=== PATIENT | male | born 1945 | race Caucasian/White ===

== ENCOUNTER 2017-04-25 18:01 | Inpatient (IN) ==
[2017-04-25] MEDS ORDERED: NS 500 ML IV ONE (19:14)
[2017-04-25] MEDS ORDERED: MORPHINE IV ONE (19:15)
[2017-04-25 19:19] LABS: BASO% 0.6 % (0.0-0.8); EOS# 0.42 X1000 (0.0-0.7); HEMATOCRIT 32.9 % (42.0-52.0); HEMOGLOBIN 9.8 g/dL (14.0-18.0); IMM GRAN# 0.02 X1000 (0.0-0.04); IMM GRAN% 0.2 % (0.0-0.5); LYMPH# 2.24 X1000 (1.2-3.4); LYMPH% 21.2 % (20.5-51.1); MANUAL DIFF NEEDED? NO; MCH 22.3 PG (27-31); MCHC 29.8 g/dL (33-37); MCV 74.8 FL (81-99); MONO# 0.95 X1000 (0.11-0.59); PLT 220 X1000 (130-400)
--- NOTE | 2017-04-25 19:24 | PROVIDER DOCUMENTATION ---
HPI-Chest Pain - General Chief Complaint: Chest Pain Stated Complaint: cp Time Seen by Provider: 04/25/17 19:03 Source: patient Allergies/Adverse Reactions: Patient Allergies Allergy/AdvReac Type Severity Reaction Status Date / Time No Known Allergies Allergy Verified 04/25/17 19:35 Home Medications: Home Medication List Medication Instructions Recorded Confirmed Last Taken Type Aspirin [Aspir-Low] 81 mg PO DAILY 04/25/17 04/25/17 Unknown History Bupropion HCl [Bupropion Xl] 150 mg PO DAILY 04/25/17 04/25/17 Unknown History Diclofenac Na D.r. [Voltaren] 75 mg PO BID 04/25/17 04/25/17 Unknown History Duloxetine [Cymbalta] 30 mg PO DAILY 04/25/17 04/25/17 Unknown History Gabapentin 300 mg PO TID 04/25/17 04/25/17 Unknown History Magnesium Oxide [Magnesium] 400 mg PO DAILY 04/25/17 04/25/17 Unknown History Metformin [Glucophage] 850 mg PO BID CC 04/25/17 04/25/17 Unknown History Metoprolol Tartrate 50 mg PO BID 04/25/17 04/25/17 Unknown History Pantoprazole [Protonix] 40 mg PO DAILY@0700 04/25/17 04/25/17 Unknown History Pravastatin Sodium 80 mg PO DAILY 04/25/17 04/25/17 Unknown History Ranitidine [Zantac] 150 mg PO BID 04/25/17 04/25/17 Unknown History Topiramate 0.5 tab PO BID 04/25/17 04/25/17 Unknown History - History of Present Illness-CP Nature of Presenting Problem: Pt comes in with complaint of CP since around 1pm today. He has a history of NC with PCI. He states he has SVT and has pain with it that usually subsides. He states that the pain usually resolves but didn't this time. He states the pain was 7/10 and then he took 4 baby aspirin before calling EMS. He refuses to take nitro because it causes a headache. He got 2 mg of morphine in route and his CP is now 4/10. It does not radiate, He does have mild SOB no N/V Review of Systems - Adult - REVIEW OF SYSTEMS - ADULT Constitutional: reports: no symptoms reported. denies: chills, fever, fatique, night sweats, weight gain, weight loss, other Eyes: reports: no symptoms reported. denies: discharge, dry eyes, double vision , eye pain, redness Ears, Nose, Mouth & Throat: reports: no symptoms reported. denies: ear discharge, ear pain, tinnitus, loose teeth, mouth swelling, hoarseness, throat pain, throat swelling Cardiovascular: reports: see HPI, chest pain, irregular heart rate. denies: edema, orthopnea, palpitations, poor circulation, PND, syncope, other Respiratory: reports: see HPI, shortness of breath. denies: chronic cough, cough, dyspnea on exertion, excessive sputum production, hemoptysis, pleurisy, wheezing Gastrointestinal: reports: no symptoms reported. denies: abdominal pain, hematemesis, constipation, diarrhea, difficulty swallowing, nausea, poor appetite, rectal bleeding Genitourinary: reports: no symptoms reported. denies: dysuria, discharge, frequency, flank pain, frequent UTI's, hesitency, incontinence, urinary retention, urgency Musculoskeletal: reports: no symptoms reported. denies: bone pain, back pain, frequent leg cramps, joint pain, joint swelling, muscle aches, muscle weakness, neck pain Integumentary: reports: no symptoms reported. denies: hives, hair loss, itching , mole changes, rash, skin sores/ulcer, skin thickening Neurological: reports: no symptoms reported. denies: ataxia, dizziness/vertigo , headache/migraines, loss of balance, paresthesia, slurred speech, syncope, tremors Psychiatric: reports: no symptoms reported. denies: anxiety, anti-depressant use, alcohol/drug dependence, emotional problems, insomnia, panic attacks, suicidal thoughts Endocrine: reports: no symptoms reported. denies: change in skin pigment, excessive sweating, goiter, heat intolerance, increased hunger, increased thirst , polyuria Hematologic/Lymphatic: reports: no symptoms reported. denies: blood clots, easy bruising, low blood count, lymphedema, prolonged bleeding, swollen lymph nodes, transfusions Allergic/Immunologic: reports: no symptoms reported. denies: allergic reactions , allergic rhinitis, asthma, eczema, hay fever, hives, positive PPD All Other Systems: Reviewed and Negative Past History - Adult - PAST MEDICAL HISTORY-ADULT Review of Records: reports: Old Records Reviewed, Nursing Assessment Review, Medications Reviewed, Social history reviewed & non-contributory. Major Childhood Illnesses: reports: denies history Cardiovascular: reports: HTN, hyperlipidemia, NC Respiratory: reports: denies history Gastrointestinal: reports: denies history Obstetrical/Gynecological: reports: denies history Genitourinary: reports: denies history Musculoskeletal: reports: denies history Neurological: reports: denies history Psychiatric: reports: denies history Endocrine/Immune: reports: Diabetes Other Conditions: reports: denies history - PRIOR SURGERIES/PROCEDURES Surgical/Procedure History: reports: reviewed, not pertinent - IMMUNIZATION STATUS Childhood Immunizations: See Nurse Assessment Flu Vaccine: See Nurse Assessment - FAMILY HISTORY Family History: reviewed, not pertinent - SOCIAL HISTORY Smoking: cigarettes, greater than 1 pack/day Substance Use: none/never Alcohol Use Frequency: never Living Situation: family Physical Exam-General - PHYSICAL EXAM-ADULT Initial Vital Signs Reviewed: Yes - CONSTITUTIONAL General Appearance: alert, mild distress - EYES Eyes: PERRL/EOMI, pink conjunctivae - HEAD, EARS, NOSE, MOUTH & THROAT HENMT: normocephalic/atraumatic, moist mucous membranes, normal ENT inspection - NECK Neck: non-tender, full range of motion, supple - RESPIRATORY Respiratory: chest non-tender, lungs clear, normal breath sounds, no pleuratic chest pain, no respiratory distress - CARDIOVASCULAR Cardiovascular: normal peripheral pulses, regular rate, rhythm, no edema - GASTROINTESTINAL (ABDOMEN) Abdominal Exam: normal bowel sounds, non tender, soft, no organomegaly - MUSCULOSKELETAL Back Exam: normal inspection, no CVA tenderness, no vertebral tenderness Extremity: normal range of motion, non-tender, normal gait, normal inspection - SKIN Integumentary: normal color, normal turgor, warm/dry - 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 nml as tested, grossly normal, no motor/sensory deficits - PSYCHIATRIC Psych/Mental Status: normal mood/affect, normal thought content, normal thought process, oriented x 3 Progress - PLAN OF CARE/RESULTS Progress/Plan/Lab Results: Vital Signs - 8 hr 04/25/17 18:32 04/25/17 19:52 Temperature 97.8 F Pulse Rate 54 L 54 L Respiratory Rate 18 18 Blood Pressure 115/80 119/77 O2 Sat by Pulse Oximetry 97 100 Laboratory Results - last 24 hr 04/25/17 04/25/17 04/25/17 18:49 18:49 18:49 WBC 10.56 RBC 4.40 L Hgb 9.8 L Hct 32.9 L MCV 74.8 L MCH 22.3 L MCHC 29.8 L RDW Std Deviation 17.3 H Plt Count 220 MPV 12.0 H Immature Gran % (Auto) 0.2 Neut % (Auto) 65.0 Lymph % (Auto) 21.2 Perry % (Auto) 9.0 Eos % (Auto) 4.0 Baso % (Auto) 0.6 Immature Gran # (Auto) 0.02 Neut # (Auto) 6.87 H Lymph # (Auto) 2.24 Perry # (Auto) 0.95 H Eos # (Auto) 0.42 Baso # (Auto) 0.06 PT INR PTT (Actin FS) D-Dimer 0.50 Sodium 141 Potassium 4.8 Chloride 109 H Carbon Dioxide 18 L Anion Gap 14 BUN 28 H Creatinine 1.3 H Estimated GFR/1.73 m2 55 BUN/Creatinine Ratio 22 Glucose 157 H Calculated Osmolality 290 Calcium 8.3 L Magnesium 1.9 Total Bilirubin 0.18 L AST 27 ALT 23 Alkaline Phosphatase 64 Creatine Kinase 176 Troponin T [id number] Pept Total Protein 6.6 Albumin 3.8 Globulin 2.8 Albumin/Globulin Ratio 1.4 04/25/17 04/25/17 04/25/17 18:49 18:49 18:49 WBC RBC Hgb Hct MCV MCH MCHC RDW Std Deviation Plt Count MPV Immature Gran % (Auto) Neut % (Auto) Lymph % (Auto) Perry % (Auto) Eos % (Auto) Baso % (Auto) Immature Gran # (Auto) Neut # (Auto) Lymph # (Auto) Perry # (Auto) Eos # (Auto) Baso # (Auto) PT 11.1 INR 1.05 PTT (Actin FS) 25.8 D-Dimer Sodium Potassium Chloride Carbon Dioxide Anion Gap BUN Creatinine Estimated GFR/1.73 m2 BUN/Creatinine Ratio Glucose Calculated Osmolality Calcium Magnesium Total Bilirubin AST ALT Alkaline Phosphatase Creatine Kinase Troponin T 0.016 [id number] Pept 423 H Total Protein Albumin Globulin Albumin/Globulin Ratio Orders Category Date Time Status Cardiac Monitoring DIRECTED Care 04/25/17 19:03 Active Saline Loc NOW Care 04/25/17 19:03 Active CHEST-2 VIEWS [RAD] Stat Exams 04/25/17 19:03 Completed CBC WITH ELECTRONIC DIFF [HEME] Stat Lab 04/25/17 18:49 Completed CK PROFILE [SP CHEM] Stat Lab 04/25/17 18:49 Completed CK PROFILE [SP CHEM] Timed Lab 04/25/17 20:49 Uncollected COMPREHENSIVE METABOLIC PANEL [CHEM] Stat Lab 04/25/17 18:49 Completed D-DIMER [CHEM] Stat Lab 04/25/17 18:49 Completed FERRITIN Routine Lab 04/26/17 06:00 Ordered FOLATE Routine Lab 04/26/17 06:00 Ordered MAGNESIUM [CHEM] Stat Lab 04/25/17 18:49 Completed PRO B-NATRIURETIC PEPTIDE Stat Lab 04/25/17 18:49 Completed PROTIME WITH INR [COAG] Stat Lab 04/25/17 18:49 Completed PTT [COAG] Stat Lab 04/25/17 18:49 Completed TOTAL IRON [CHEM] Routine Lab 04/26/17 06:00 Ordered TROPONIN T Stat Lab 04/25/17 18:49 Completed TROPONIN T Timed Lab 04/25/17 20:49 Uncollected UIBC W TOTAL IRON [CHEM] Routine Lab 04/26/17 06:00 Ordered VITAMIN B12 Routine Lab 04/26/17 06:00 Ordered 0.9% Sodium Chloride Inj [Ns] 500 ml Med 04/25/17 19:14 Discontinued IV 999 mls/hr Morphine Med 04/25/17 19:15 Discontinued 2 mg IV NOW ONE EKG [EKG] Stat Ther 04/25/17 18:05 Ordered Result Diagrams: 04/25/17 18:49 04/25/17 18:49 - XRAY 1 XRAY Study: Chest Impression: Normal XRAY Interpretation: NAD(HCB) - CONSULTS/PCP/HOSPITALIST Notification #1 *Consult/PCP/Hospitalist*: akinsoto Time Discussed: 21:27 Reason/Comments: CP Consult Disposition: Will see in ED, Admit Departure - Departure Date of Disposition Decision: 04/25/17 Time of Disposition Decision: 21:05 DIAGNOSIS: PADMINI (acute kidney injury), Chest pain at rest, Angina pectoris associated with type 2 diabetes mellitus Disposition: ADMITTED INPATIENT 09 Certified Medical Emergency: Emergent Condition: Good Additional Freetext Instructions: ED Follow Up Instructions: You have been treated by a care provider in the Emergency Department. These instructions are being provided to you so you can have an understanding of how to care for yourself upon discharge. Upon discharge from the Emergency Department, you are responsible for making arrangements for follow-up care by a physician of your choice. Take all prescribed medications as directed. Return to the Emergency Department immediately for any new or worsening symptoms. You may call the Physician Referral phone number at [phone] to obtain a list of Physicians who are taking new patients. Referrals and Follow-Ups: None,PCP [Primary Care Provider] - - Critical Care Note This patient required my direct & personal management of CC.: No Attestation - Physician/ AUDREY Attestation Patient care was provided by Advanced Practice Provider:: Yes Advanced Practice Provider:: Miya Flowers Advanced Practice Provider documentation review:: The Mid-level provider documentation, treatment plan and medical decision making was reviewed by the physician who agrees with all treatment and medical decision making by the MLP.
[2017-04-25 19:26] LABS: INR 1.05; PROTIME 11.1 Seconds (9.2-11.7); PTT 25.8 Seconds (22.0-36.0)
[2017-04-25 19:34] LABS: ALBUMIN 3.8 g/dL (3.5-5.0); CALCIUM 8.3 mg/dL (8.8-10.2); MAGNESIUM 1.9 mg/dL (1.5-2.7); POTASSIUM 4.8 mmol/L (3.5-5.1); TOTAL BILIRUBIN 0.18 mg/dL (0.20-1.00); TOTAL PROTEIN 6.6 g/dL (6.3-8.3)
--- NOTE | 2017-04-25 19:48 | Diag Imaging Result Doc PS360 ---
EXAM: CHEST-2 VIEWS HISTORY: CP TECHNIQUE: COMPARISON: None. FINDINGS: Poor inspiratory effort. The heart is not enlarged. The vessels are not distended. There are no infiltrates. No pleural effusions. IMPRESSION: No definite abnormality. Electronically signed by Farooq Valentine 04/25/2017 7:46 PM
[2017-04-25 22:22] LABS: CK INDEX 3.1 (0.0-2.5); CK-MB 12.27 ng/mL (0.0-5.0)
--- NOTE | 2017-04-25 22:51 | HISTORY AND PHYSICAL ---
PRIMARY CARE PROVIDER: [facility]. PRIMARY BOX ANNEALER: Through the [facility], Dr. Vizcaino and also Dr. Frances. CHIEF COMPLAINT: Chest pain. HISTORY OF PRESENT ILLNESS: Mr. Robert Marcial is a 71-year-old male. He is in no acute distress. He has a medical history of hypertension, diabetes mellitus type 2, ventricular tachycardia, coronary artery disease, chronic angina and peptic ulcer disease who states that he was awoken at 4 p.m. today from a nap with chest pain mid sternum that radiated to bilateral arms and his back. He also had associated sweating and lightheadedness. He states that this pain has been continuous. He took 4 baby aspirin prior to arrival and his pain level is down to a 2/10 after receiving morphine. He also states that he has had some diarrhea over the last month, but will be having a GI work up soon as outpatient. In detail about his chronic chest pains, he states that they usually last about 10-20 minutes. They can happen 2-3 times in 1 day. Sometimes he can skip a whole month without chest pains, and he normally takes 4 baby aspirin which alleviates this pain. He states that nitroglycerin gives him migraines and he does not take nitroglycerin. His last bout of chest pain was about 3 days ago and prior to that had been over a month. Last heart catheterization apparently was in 2000 after he had an acute TN and received a cardiac stent. He has had some recent echocardiograms through the [facility] and apparently was on a 30- day continuous monitor tech, but was only 15 days into it. We will admit to the [facility]. The 1st set of cardiac enzymes are negative. EKG is sinus bradycardia. No obvious ST elevations. We will admit to [facility] and consult Dr. Reyez with Cardiology. PAST MEDICAL HISTORY: Hypertension, diabetes mellitus type 2, ventricular tachycardia, coronary artery disease with a myocardial infarction in 2000, chronic angina, migraines, but those quit at the age of 51, peptic ulcer disease with a history of duodenal ulcer. SURGICAL HISTORY: Cardiac stent in 2000, cholecystectomy and vasectomy. SOCIAL HISTORY: Quit smoking in 1989, but prior to that was 2 pack per day smoker for 20 years. Quit drinking alcohol in 1989. is at the bedside with him and he is a . FAMILY HISTORY: Father is from cirrhosis of the liver. Mother is also of unknown cancer. REVIEW OF SYSTEMS: Fourteen point review of systems were complete and all were negative except for those mentioned in above HPI. ALLERGIES: No known drug allergies. HOME MEDICATIONS: 1. Aspirin 81 mg p.o. daily. 2. Wellbutrin 150 mg p.o. daily. 3. Voltaren 75 mg p.o. twice daily. 4. Cymbalta 30 mg p.o. daily. 5. Neurontin 300 mg p.o. t.i.d. 6. Magnesium oxide 400 mg p.o. daily. 7. Metformin 850 mg p.o. b.i.d. 8. Metoprolol tartrate 50 mg p.o. twice daily. 9. Protonix 40 mg p.o. daily. 10. Pravastatin 80 mg p.o. daily. 11. Zantac 150 mg p.o. twice daily. 12. Topiramate 100 mg p.o. twice daily. PHYSICAL EXAMINATION: VITAL SIGNS: Temperature is 97.8 degrees, heart rate 54, respiratory rate 18, blood pressure 119/77, 100% on room air saturation. 5 foot 9, 204 pounds. BMI 30.1. GENERAL: Mr. Marcial is a 71-year-old male. He is in no acute distress. He is able answer all questions appropriately. HEENT: Atraumatic, normocephalic. Pupils equal, round, reactive to light. Extraocular movements intact. Mucous membranes are moist. NECK: No JVD or carotid bruits noted. CARDIOVASCULAR: S1, S2. Bradycardic rate and rhythm. No rubs, gallops, murmurs. PULMONARY: Clear to auscultation bilateral breath sounds posteriorly. Some mild crepitations in the left base. Currently on room air. No accessory muscle use or work of breathing noted. GI: Soft, nontender, nondistended. Positive bowel sounds x4. Small periumbilical hernia noted. EXTREMITIES: No edema noted. +2 dorsalis and radial pulses. SKIN: Warm, dry, intact. NEUROLOGIC: Alert and oriented x4. Moves all extremities equally. LABORATORY DATA: White blood cells 10,000, hemoglobin 9.8, hematocrit 32.9, platelet count 220,000. INR 1.05. PTT 25.8. D-dimer 0.5. Sodium 141, potassium 4.8, BUN 28 , creatinine is 1.3. Glucose 157, calcium 8.3, magnesium 1.9. Bilirubin 0.18, AST 27, ALT 23, CK 176, troponin 0.016, proBNP 423. Urinalysis pending. IMAGING: Chest x-ray: No acute findings. ASSESSMENT AND PLAN: 1. Unstable angina rule out Acute Coronary Syndrome with coronary arterial disease history. Chest pain has been continuous with associated diaphoresis and bilateral arms and back radiation, improved mildly with morphine. Apparently, his last heart cath was in 2000. He has a history of coronary artery disease. We will consult Cardiology. Do serial cardiac enzymes. First set is negative. 2. Diabetes mellitus type 2 with sliding scale insulin, pattern blood glucoses. 3. Hypertension. Continue home medications. 4. History of ventricular tachycardia. Continue beta racquel, but monitor heart rate as it was in the upper 50s. 5. Peptic ulcer disease. Apparently with duodenal. We will do IV Pepcid and p.o. Protonix. 6. Anemia. labs ordered. 7. Acute kidney insufficiency likely secondary to dehydration. We will give IV fluids x 1 L and perform urine studies. 8. Deep venous thrombosis prophylaxis. Lovenox. Dictated by AMANDA Verdugo for Karlo Bates MD Seen and examined pt ; discussed case with Coin Purse Framer cc: AMANDA Verdugo MD [facility]
[2017-04-25 23:13] LABS: URINE MICRO REVIEW NEEDED? NO; URINE SOURCE VOIDED
[2017-04-25 23:17] LABS: BILIRUBIN URINE NEGATIVE (NEGATIVE); BLOOD URINE NEGATIVE (NEGATIVE); COLOR YELLOW; GLUCOSE URINE TRACE mg/dL (NEGATIVE); LEUKOCYTES URINE NEGATIVE (NEGATIVE); NITRITE URINE NEGATIVE (NEGATIVE); PROTEIN URINE TRACE mg/dL (NEGATIVE); TURBIDITY URINE CLEAR (CLEAR); UR EPITHELIAL CELLS <10 /HPF (<10); URINE BACTERIA NEGATIVE /HPF; URINE RBC <10 /HPF (<10); URINE WBC <10 /HPF (<10); UROBILINOGEN URINE NORMAL (NORMAL)
[2017-04-25 23:28] LABS: UR CREAT RANDOM 110.4 mg/dL (14-26)
[2017-04-26] MEDS ORDERED: SODIUM CHLORIDE 0.9% INJ SCH (00:08)
[2017-04-26] MEDS ORDERED: ZOFRAN IV PRN (00:08)
[2017-04-26] MEDS ORDERED: PEPCID IV SCH (00:08)
[2017-04-26] MEDS ORDERED: TYLENOL PO PRN (00:08)
[2017-04-26] MEDS ORDERED: NS 1,000 ML IV ONE (00:08)
[2017-04-26] MEDS ORDERED: LOPRESSOR PO SCH (00:56)
[2017-04-26] MEDS ORDERED: NEURONTIN PO SCH (00:58)
[2017-04-26] MEDS: MORPHINE IV PRN ×2 (01:03→07:08)
[2017-04-26] MEDS: MAG-OX PO SCH ×2 (01:12→20:26)
[2017-04-26] MEDS: PRAVACHOL PO SCH ×2 (01:12→20:26)
[2017-04-26] MEDS: PROTONIX PO SCH ×3 (01:13→20:26)
[2017-04-26] MEDS: TOPAMAX PO SCH ×3 (01:13→20:25)
[2017-04-26] MEDS ORDERED: NEURONTIN PO ONE (01:19)
[2017-04-26 05:21] LABS: MANUAL DIFF NEEDED? NO
[2017-04-26 05:28] LABS: BASO% 0.3 % (0.0-0.8); EOS# 0.29 X1000 (0.0-0.7); HEMATOCRIT 31.3 % (42.0-52.0); HEMOGLOBIN 9.1 g/dL (14.0-18.0); IMM GRAN# 0.02 X1000 (0.0-0.04); IMM GRAN% 0.2 % (0.0-0.5); LYMPH# 2.59 X1000 (1.2-3.4); LYMPH% 26.7 % (20.5-51.1); MCH 21.8 PG (27-31); MCHC 29.1 g/dL (33-37); MCV 75.1 FL (81-99); MONO% 10.3 % (1.7-9.3); NEUT% 59.5 % (42.2-75.2); PLT 212 X1000 (130-400); RBC 4.17 XMIL (4.7-6.1)
[2017-04-26 05:57] LABS: MAGNESIUM 1.9 mg/dL (1.5-2.7)
[2017-04-26 05:59] LABS: HEMOGLOBIN A1C 6.4 % (4.8-6.0)
[2017-04-26 06:02] LABS: AGAP 10; ALBUMIN 3.7 g/dL (3.5-5.0); ALKALINE PHOSPHATASE 60 U/L (32-122); BUN 23 mg/dL (8-22); CALCIUM 8.4 mg/dL (8.8-10.2); CHLORIDE 108 mmol/L (98-107); COSMO 284; GOT 120 U/L (10-34); GPT 32 U/L (10-44); HDL 31 mg/dL (35-55); LDL 78 mg/dL; POTASSIUM 4.9 mmol/L (3.5-5.1); SODIUM 139 mmol/L (136-145); TCO2 21 mmol/L (25-35); TOTAL BILIRUBIN 0.23 mg/dL (0.20-1.00); TOTAL PROTEIN 6.3 g/dL (6.3-8.3); TRIGLYCERIDES 176 mg/dL (39-160); VLDL 35 mg/dL
[2017-04-26 06:18] LABS: CK PROFILE 1818 U/L (24-204)
[2017-04-26 06:35] LABS: CK INDEX 7.3 (0.0-2.5)
[2017-04-26] MEDS: HUMULIN R SUBQ SCH ×4 (06:43→20:27)
[2017-04-26 07:02] LABS: FERRITIN 9 ng/mL (30-400)
[2017-04-26] MEDS ORDERED: LOVENOX SUBQ SCH (08:00)
[2017-04-26] MEDS ORDERED: ASPIRIN PO SCH (09:00)
[2017-04-26] MEDS: LOVENOX SUBQ SCH ×2 (10:21→21:16)
[2017-04-26] MEDS: WELLBUTRIN XL PO SCH (10:21)
[2017-04-26] MEDS: CYMBALTA PO SCH (10:21)
[2017-04-26] MEDS: NEURONTIN PO SCH ×3 (10:21→20:25)
[2017-04-26 10:36] LABS: IRON SATURATION 6 %; TIBC 369 ug/dL; TOTAL IRON 22 ug/dL (53-167); UNBOUND IRON 347 ug/dL (112-346)
--- NOTE | 2017-04-26 12:32 | Diag Imaging Result Doc PS360 ---
EXAM: CT THORAX W/O CONTRAST HISTORY: COPD/former smoker/dyspnea TECHNIQUE: COMPARISON: None. FINDINGS: No pleural effusions. Heart is borderline mildly prominent. Moderate atherosclerosis. No aneurysmal dilatation to the aorta. There are mildly enlarged mediastinal lymph nodes. Mild increased interstitial markings in the upper lobes. No consolidation. No bronchiectasis. Minimal emphysematous changes. IMPRESSION: 1.Patchy upper lobe infiltrates 2.Mild emphysema 3.Mildly prominent mediastinal lymph nodes with a single enlarged aorticopulmonary window node measuring 2.2 cm. Electronically signed by Farooq Valentine 04/26/2017 12:29 PM
[2017-04-26] MEDS ORDERED: NS NEB INH SCH (12:45)
--- NOTE | 2017-04-26 13:11 | PROGRESS NOTE ---
DATE: 04/26/2017 SUBJECTIVE: The patient complains of 3/10 chest pain. His cardiac enzymes are positive. He denies having any shortness of breath or cough at this time. OBJECTIVE: Vital Signs: Temperature 98 degrees, blood pressure 111/68, heart rate 54, respirations 21, O2 saturations 100% on room air. General: This is a morbidly obese male, lying in bed, in no acute distress. Head: Normocephalic, atraumatic. Heart: S1, S2. Normal. Bradycardic. Lungs: Equal air entry bilaterally. No crackles. No rales. Abdomen: Positive bowel sounds. Soft, nontender, nondistended. Extremities: No edema. No cyanosis. No calf tenderness. Neurologic: The patient is alert oriented x3. LABS: White blood cell count 9.7, hemoglobin 9.1, hematocrit 31, platelets 212, 000. Sodium 139, potassium 4.9, chloride 108, CO2 21, BUN 23, creatinine 1.1, glucose 156. Hemoglobin A1c 6.4. CK 1818, troponin 3.6. Cholesterol 144. ASSESSMENT AND PLAN: 1.Acute myocardial infarction. The patient has been seen by the police academy instructor and has been started on full dose Lovenox as well as a beta racquel and aspirin. We will continue on statin therapy. The patient is scheduled for a resting myocardial perfusion scan tomorrow. We will continue to monitor the patient closely. 2. Upper lobe infiltrates. The CT done today shows infiltrates. We will start the patient on Merrem and on p.r.n. bronchodilator therapy. 3. Diabetes mellitus type 2. The patient's metformin is on hold. We will cover the patient with sliding scale insulin. 4. Morbid obesity. Aware. 5. Folate deficiency. The patient has been started on folic acid replacement. 6. Situational depression. Continue on Wellbutrin. 7. Iron-deficiency anemia. The patient has been started on IV iron replacement. We will monitor the patient's hemoglobin and hematocrit closely. cc: Talia Virk MD MTDD
--- NOTE | 2017-04-26 13:16 | CONSULTATION ---
DATE OF CONSULTATION: 04/26/2017 REQUESTING PHYSICIAN: Hospitalist Service REASON FOR CONSULTATION: Patient with chest pain, coronary artery disease suspected. HISTORY OF PRESENT ILLNESS: Mr. Marcial is a pleasant 71-year-old gentleman who presented to the Emergency Room yesterday afternoon at about 7:00 p.m. with complaints of a prolonged episode of chest discomfort associated with a sensation of palpitations. The patient said that the pain was stabbing-like moving from the front of the chest to the back with radiation to the arm associated with some lightheadedness. He had no nausea. He was slightly short of breath. Upon presentation they did a chest x-ray that shows no acute abnormalities. Blood work initially done showed a CPK of 176 with a troponin of 0.016. Subsequently his CPK went up to 393 with a CK index of 3.1 and a CK-MB of 12.27 with a troponin of 0.108. Thereafter, the next CK at 4:59 this morning is 1818 units with an index of 7.3 and CK-MB of 132.60. Troponin now is 3.620 done at 8:30 in the morning. The patient says that his discomfort right now is less than 1/10. His serial electrocardiograms starting with the first one at 6:11 p.m. shows sinus bradycardia with J point elevation in leads V2, V3, 4, 5, and 6 with reciprocal T wave inversion in lead 3. Then there is a second EKG at 9:[address] that shows again [address] elevation in leads V2 through C6, precordial leads , with pathological Q waves in V1, 2 and 3. The last EKG done at 6:00 a.m. shows sinus bradycardia and left axis deviation with Q waves in the precordial leads V1 through V5. The J point is not as prominent as it was on the previous EKG 6 hours earlier. He is feeling more comfortable at this time. PAST MEDICAL HISTORY: His past history is positive for pericarditis at the age of 22. Since then he remembers suffering recurrent chest pains over the course of the years. In 2000 when he was living in [place] he suffered an acute myocardial infarction which at that time he described a bear hug which basically means pain all over the chest, a very tight feeling, intense , different than the pain that brought him to the Emergency Room this time. At that time he was taken to the labeling associate and they gave him a stent. Since these he has continued to experience episodes of irregular palpitations associated with chest pains. He says that the spells happen in a very irregular manner, sometimes 3 times a day, no more than 10-20 minutes each time, and sometimes it may not happen for a whole month. The discomfort is described as "stabbing" in the center of the chest and it radiates to the back and then left arm and neck and is similar to the one that brought him today to the hospital although it was somewhat more intense this time. He is being followed by the [facility] in [place], Dr. Vizcaino and Dr. Frances. The last time he was seen was 6 weeks and they had ordered an echocardiogram and a stress test on him. The patient states that for the past few months he has been experiencing increasing dyspnea. His exercise capacity has decreased markedly. He has been coughing up some pale yellow stuff. The patient has a history of chronic back pain with a spinal stenosis involving the thoracic and lower spine. He has neuropathy related to that and has to take gabapentin. He also takes diclofenac. He has a remote history of migraine headaches which ceased to bother him about 20 years ago when he turned 51. He has been diagnosed with diabetes mellitus type 2 about 3 years ago. He has been diagnosed with bipolar disorder in . PAST SURGICAL HISTORY: Positive for a cholecystectomy in the past. He has had a vasectomy. He has also had a postsurgical hernia related to the cholecystectomy which has not been repaired. He has had a kidney stone episode a few years ago. HOME MEDICATIONS: His home medications at the time of this admission include: Gabapentin 100 mg 3 times a day, Pravastatin 80 mg at bedtime, magnesium oxide 400 mg at bedtime, Zantac 150 mg twice a day, Cymbalta 30 mg daily, aspirin 81 mg daily, metoprolol 50 mg twice a day, Voltaren or diclofenac 75 mg twice a day, Protonix 40 mg daily, bupropion 150 mg daily, metformin 850 mg twice a day. REVIEW OF SYSTEMS: He reports a history of a peptic ulcer since 1975 and this flares up every once in a while. He has had some rectal bleeding at some point. He has had endoscopies which have not shown any malignancy. The last bleeding episode happened over a year ago and it was rectal bleeding. ALLERGIES: He has no reported allergies. FAMILY HISTORY: His family history is negative for heart disease. Apparently there is a history of cancer and cirrhosis in his family. SOCIAL HISTORY: He has been to his present for the past 27 years. He is retired from the [employer] after serving for 24 years. He also worked for a [employer] company in [place]. He has been retired. He moved to live in the [place] area about 5 years ago from [place]. He has 3 grownup children. He used to smoke cigarettes, 2 packs a day for over 20 years. He quit in 1989. PHYSICAL EXAMINATION: VITAL SIGNS: Blood pressure is 113/70, temperature 97.6, pulse 61, and respirations 12. GENERAL: He is not in distress. He is cooperative. He has a kyphotic posture. HEENT: Unremarkable. NECK: He does not have any masses in the neck or bruits. CHEST: Symmetrical breath sounds without any definite rales. CARDIOVASCULAR: Heart sounds are regular and rhythmic. I do not hear any gallop or murmur. ABDOMEN: He does have an epigastric hernia, ventral hernia. There are no masses in the abdomen. Bowel sounds are normal. No bruits. EXTREMITIES: The extremities show good posterior tibialis pulses bilaterally. No edema is noted. NEUROLOGICAL: He follows commands and moves all extremities. Gait is steady and normal. Cranial nerves appear to be normal. LABORATORY DATA: His blood work showed a sodium of 139, potassium4.9, chloride 108, carbon dioxide 21, BUN 23, and creatinine 1.1. Hemoglobin A1c is 6.4. His iron level is 23. TIBC is 401. Saturation is 6%. Ferritin is low at 9. A proBNP level was elevated borderline at 423 when he first came in. His cholesterol is 144, LDL 78, HDL 31, and triglycerides 176. Folate is low at 7.2. His hemoglobin is 9.1, MCV 75.1, RDW 17.3, and platelet count 212,000. IMPRESSION: 1. Patient who presents to the hospital with the sudden onset of chest pain of a few hours duration who developed elevation of cardiac enzymes and an abnormal EKG consistent with an acute anterior wall myocardial infarction. At this time his EKG seems to be going back to normal. He is not having any more chest pains. It seems like the acute phase of this infarct is already over. He has been more than 12 hours already in the hospital. 2. Coronary artery disease with previous stent. 3. History of spinal stenosis. 4. Iron deficiency anemia, microcytic hypochromic. 5. History of diabetes mellitus type 2. A1c is 6.4. 6. Hyperlipidemia with low HDL. LDL level appears to be close to target at 78. 7. History of a peptic ulcer. 8. Remote history of pericarditis. 9. Palpitations. probably arrhythmia (PVC's?) RECOMMENDATIONS: At this point in time, we will treat the patient conservatively with beta blockers, low dose aspirin, and enoxaparin. We may have to keep him on medications to protect the stomach like Carafate. We will given him an iron infusion. We will obtain a echocardiogram and a resting gated myocardial perfusion study on him. [facility] The patient tells me that his has records at home. Further advise will be forthcoming. Thank you for the opportunity to participate in his evaluation. Best Regards. cc: Segun Reyez MD MTDD
[2017-04-26] MEDS: CARAFATE LIQUID PO SCH ×2 (13:47→20:27)
[2017-04-26] MEDS: FOLIC ACID PO SCH (13:47)
[2017-04-26] MEDS: MERREM 500 MG in NS 50 ML IV SCH ×2 (13:48→20:25)
[2017-04-26] MEDS: LOPRESSOR PO SCH ×2 (13:48→20:26)
[2017-04-26 15:26] LABS: CK INDEX 7.2 (0.0-2.5); CK-MB 209.3 ng/mL (0.0-5.0)
--- NOTE | 2017-04-26 17:57 | ECHO REPORT ---
ORDER DATE: 04/26/2017 INTERPRETING PHYSICIAN: Dr. Reyez REQUESTING PHYSICIAN: CLINICAL INDICATIONS: Patient with myocardial infarction, chest pain, coronary heart disease.l M-MODE MEASUREMENTS: Right ventricle: 3.1 cm. Left ventricle end diastole: 5.0 cm. Left ventricle end systole: 3.2 cm. Posterior wall: 1.0 cm. Interventricular septum: 1.1 cm. Left atrium: 4.3 cm. Aortic root: 3.4 cm. SUMMARY OF 2-DIMENSIONAL IMAGING: The left ventricular chamber is dilated. The global systolic function is impaired moderately, estimated visually to be in the order of 35-40%. There is akinesis of the mid to distal anterior septal segment as well as the distal lateral wall consistent with infarct involving the LAD territory. The right ventricle is at the upper limits of normal. It shows good contractility. The tricuspid valve shows a mild degree of regurgitation. The inferior vena cava is at the upper limits of normal. Pulmonary pressure estimated to be in the range of 43-48 mmHg. The pulmonic valve looks normal. Color flow mapping unremarkable. The aortic valve shows thickening/calcification of the cusp. It opens normally. Color flow mapping indicates a very mild degree of regurgitation. The mitral valve shows a [id number] degree of regurgitation. Pulse wave Doppler of mitral inflow is normal. Tissue Doppler of septal and lateral mitral annulus averages 6.5 cm per second. Pulmonary venous flow is normal. There is no diastolic dysfunction. There is no pericardial effusion, masses or thrombus. IMPRESSION: In summary, this echocardiographic study shows: 1. Enlargement of the left ventricular chamber of moderate degree with akinesis of the anteroapical, mid to distal septal, and distal lateral portion of the left ventricle indicating infarction in the territory of the LAD. Visually the ejection fraction is 35-40%. By computer tracing, values were in the upper 40s. 2. Uwyb-kn-ftjisuak degree of mitral regurgitation with mild degree of tricuspid regurgitation. 3. No diastolic dysfunction. 4. Pulmonary pressure in the range of 43-48 mmHg. Clinical correlation recommended. cc: MD Marii Manuel CRNP
[2017-04-26 23:18] LABS: CK INDEX 6.2 (0.0-2.5); CK-MB 143.8 ng/mL (0.0-5.0)
[2017-04-27] MEDS: CARAFATE LIQUID PO SCH ×4 (04:31→20:28)
[2017-04-27] MEDS: MERREM 500 MG in NS 50 ML IV SCH ×4 (04:31→20:27)
[2017-04-27] MEDS: LOPRESSOR PO SCH ×4 (04:31→20:30)
[2017-04-27 05:07] LABS: HEMOGLOBIN 10.1 g/dL (14.0-18.0); MCH 22.9 PG (27-31); MCHC 29.7 g/dL (33-37); MCV 76.9 FL (81-99); MPV 12.1 FL (7.4-10.4); RBC 4.42 XMIL (4.7-6.1)
--- NOTE | 2017-04-27 05:18 | EKG Report ---
Test Performed on : 04/26/2017 06:02:27 AM Test Reason : chest pain Blood Pressure : / mmHG Vent. Rate : 050 BPM Atrial Rate : 050 BPM P-R Int : 176 ms QRS Dur : 080 ms QT Int : 438 ms P-R-T Axes : 048 -37 030 degrees QTc Int : 399 ms Sinus bradycardia. Left axis deviation Inferior infarct (cited on or before 25-APR-2017) Anterolateral infarct (cited on or before 25-APR-2017) Abnormal ECG When compared with ECG of 25-APR-2017 21:23, (Unconfirmed) Questionable change in initial forces of Lateral leads Nonspecific T wave abnormality now evident in Anterior leads Confirmed by Erna Ahuja MD ([id number]) on 04/27/2017 8:19:41 AM
[2017-04-27 05:22] LABS: CALCIUM 8.6 mg/dL (8.8-10.2); MAGNESIUM 1.9 mg/dL (1.5-2.7); POTASSIUM 4.5 mmol/L (3.5-5.1)
--- NOTE | 2017-04-27 05:42 | EKG Report ---
Test Performed on : 04/25/2017 6:11:44 PM Test Reason : cp Blood Pressure : / mmHG Vent. Rate : 054 BPM Atrial Rate : 054 BPM P-R Int : 194 ms QRS Dur : 078 ms QT Int : 424 ms P-R-T Axes : 044 -15 009 degrees QTc Int : 402 ms Sinus bradycardia. Low voltage QRS Inferior infarct , age undetermined Cannot rule out Anterior infarct , age undetermined Abnormal ECG No previous ECGs available Unconfirmed Result
[2017-04-27] MEDS: HUMULIN R SUBQ SCH ×4 (06:00→20:30)
[2017-04-27] MEDS: MORPHINE IV PRN (06:51)
--- NOTE | 2017-04-27 06:54 | EKG Report ---
Test Performed on : 04/27/2017 06:12:08 AM Test Reason : chest pain/Anterior MT Blood Pressure : / mmHG Vent. Rate : 064 BPM Atrial Rate : 064 BPM P-R Int : 166 ms QRS Dur : 082 ms QT Int : 396 ms P-R-T Axes : 045 -13 029 degrees QTc Int : 408 ms Normal sinus rhythm. Low voltage QRS Inferior infarct (cited on or before 25-APR-2017) Cannot rule out Anteroseptal infarct (cited on or before 25-APR-2017) Abnormal ECG When compared with ECG of 27-APR-2017 06:11, (Unconfirmed) premature ventricular complexes. are no longer present Confirmed by Erna Ahuja MD ([id number]) on 04/27/2017 8:21:32 AM
--- NOTE | 2017-04-27 07:07 | EKG Report ---
Test Performed on : 04/25/2017 9:23:50 PM Test Reason : REPEATS Blood Pressure : / mmHG Vent. Rate : 054 BPM Atrial Rate : 054 BPM P-R Int : 178 ms QRS Dur : 078 ms QT Int : 420 ms P-R-T Axes : 043 -17 015 degrees QTc Int : 398 ms Sinus bradycardia. Low voltage QRS Inferior infarct (cited on or before 25-APR-2017) Cannot rule out Anteroseptal infarct (cited on or before 25-APR-2017) Abnormal ECG When compared with ECG of 25-APR-2017 18:11, (Unconfirmed) Questionable change in initial forces of Septal leads Unconfirmed Result
[2017-04-27 07:08] LABS: CK INDEX 4.9 (0.0-2.5); CK-MB 85.42 ng/mL (0.0-5.0)
[2017-04-27] MEDS: XOPENEX NEB INH PRN (08:14)
[2017-04-27] MEDS: TOPAMAX PO SCH ×2 (08:31→20:28)
[2017-04-27] MEDS: ASPIRIN PO SCH (08:31)
[2017-04-27] MEDS: THERA M PLUS PO SCH (08:31)
[2017-04-27] MEDS: FOLIC ACID PO SCH (08:31)
[2017-04-27] MEDS: CYMBALTA PO SCH (08:32)
[2017-04-27] MEDS: NEURONTIN PO SCH ×3 (08:32→20:28)
[2017-04-27] MEDS: PROTONIX PO SCH ×2 (08:32→20:28)
[2017-04-27] MEDS: WELLBUTRIN XL PO SCH (08:32)
[2017-04-27] MEDS: VENOFER IV SCH (08:33)
--- NOTE | 2017-04-27 09:44 | PROGRESS NOTE ---
DATE: 04/27/2017 CHIEF COMPLAINT: Chest pain. SUBJECTIVE: Mr. Marcial is not having any more of the chest pain that he reported at the time of admission. Now he is reporting a pain in the upper back which he claims to be similar to previously experienced pains that are more arthritic in nature. It is somewhat pleuritic. He denies having any dyspnea or cough at this time. OBJECTIVE: Vital signs: Blood pressure is 103/60, temperature 99.2, pulse 62, respirations 16. General: The patient is awake, alert, oriented, follows commands. HEENT: Unremarkable. Chest: Shows diffusely diminished breath sounds. No gallop or murmur is noted. Abdomen: Obese, nontender, no masses, no hepatomegaly. Extremities: Fairly good pulses, no peripheral edema. Neurological: Follows commands. Cranial nerves are normal. LABORATORY: Blood work: White count is 11,760, hemoglobin 10.1, hematocrit 34%. Platelet count is 219,000. Chemistry: Sodium 136, potassium 4.5, BUN 16, creatinine 1.3. His CPK is coming down; after peaking at 2900, is coming down to 1738 with MB fraction of 85.42. Greatest troponin rise has been 5.290, which is last night. We have one more pending this morning. The patient's CAT scan of the chest was done yesterday that shows the presence of a mildly prominent mediastinal lymph node with a single enlarged aorticopulmonary window, node measurement 2.2 cm. He has mild emphysema and patchy upper lobe infiltrates. His iron tests confirmed the presence of iron deficiency. His saturation is only 6%. Total iron is 22, TIBC 369. IMPRESSION: 1. The patient has suffered an acute anterior wall myocardial infarction. His echocardiogram indicates moderate left ventricular dysfunction with ejection fraction in the range of 35% to 40%. He is not having any significant postinfarction angina at this time. 2. Previous coronary heart disease, previous stent. 3. Iron-deficiency anemia. 4. Remote history of pericarditis. 5. History of diabetes mellitus. 6. History of peptic ulcer. 7. History of recurrent palpitations. 8. Arthritis/spinal stenosis. RECOMMENDATION: At this point in time, I will obtain a resting gated myocardial perfusion study to better assess his ejection fraction and the extent of the myocardial infarction. I will also initiate low-dose angiotensin converting blocking agents, captopril, adjusted for blood pressure. I will arrange for possibly a vest to protect him from ventricular arrhythmias upon discharge. I anticipate that this patient will probably stay in the hospital for the next 3 or 4 days to optimize his overall condition. His myocardial infarction is a high risk one with significant left ventricular dysfunction post infarct with evidence of clinical congestion on the chest x-ray. We will follow him along. Thank you for the opportunity to participate in his evaluation. cc: Segun Reyez MD
[2017-04-27] MEDS: LOVENOX SUBQ SCH ×2 (10:29→21:28)
[2017-04-27] MEDS: CAPOTEN PO SCH ×2 (14:25→20:29)
--- NOTE | 2017-04-27 14:48 | PROGRESS NOTE ---
DATE: 04/27/2017 The patient states that he has been having intermittent chest pain all night. He denies having any shortness of breath, headache or dizziness. OBJECTIVE: Vital Signs: Temperature 98.2 degrees, blood pressure 97/62, heart rate 63, respirations 14, O2 saturations 97% on room air. General: This is an elderly male, lying in bed, in no acute distress. Head: Normocephalic, atraumatic. Heart: S1, S2. Normal. Regular rate and rhythm. Lungs: Clear to auscultation bilaterally. No crackles. No rales. Abdomen: Positive bowel sounds. Soft, nontender, nondistended. Extremities: No edema. No cyanosis. Neurologic: The patient is alert and oriented x3. LABS: White blood cell count 11, hemoglobin 10, hematocrit 34, platelets 219,000. Sodium 136, potassium 4.5, chloride 104, CO2 21, BUN 16, creatinine 1.3, glucose 167. Phosphorus 2.3. Magnesium 1.9. ASSESSMENT AND PLAN: 1. Acute CA. Continue on the current cardiac medications as directed by the head of sales and marketing. The patient is scheduled to undergo a resting myocardial perfusion scan today. 2. Pneumonia. Continue on the current IV antibiotic regimen. 3. Acute kidney injury. The patient's creatinine is mildly elevated. Will continue to monitor this closely and avoid nephrotoxic agents. The patient has just been started on captopril. 4. Iron-deficiency anemia. Continue on intravenous iron infusions. 5. Morbid obesity. Aware. 6. Situational depression. Continue on Cymbalta and Wellbutrin. 7. Gastrointestinal prophylaxis. Continue on Protonix. 8. Diabetes mellitus type 2. Continue on sliding scale insulin. The patient's metformin is on hold. cc: Talia Virk MD
[2017-04-27] MEDS ORDERED: SODIUM PHOSPHATE 30 MMOL in NS 250 ML IV ONE (15:30)
--- NOTE | 2017-04-27 15:42 | Diag Imaging Result Document ---
PROCEDURE NAME: MYOCARDIAL PERFU SCAN, REST - 04/27/2017 PROCEDURE: Rest sestamibi image. SUMMARY: The patient was administered 38.1 millicuries of technetium-99m sestamibi, after which gated resting cardiac images were obtained. SPECT images were reconstructed in the short, horizontal, and vertical long axis. Review of these images demonstrated very severe defect in uptake involving the mid to apical anterior wall, mid to apical inferior wall, mid to apical septum and the apex left ventricle. There is moderately diminished activity in the basal inferior wall. Gated images demonstrate akinesis of the mid to apical anterior wall, mid to apical septum and mid to apical inferior wall. The apex is akinetic as well. Calculated left ejection fraction 38%. CONCLUSION: Rest-only sestamibi images demonstrating very severe defect in uptake involving the mid to apical anterior wall, mid to apical septum, mid to apical inferior wall and apex with corresponding akinesis. Extensive infarction suggested. There is moderate diminished activity in the basal to mid inferior wall with preserved wall motion of unclear clinical significance. Calculated left ejection fraction 38%. Left ventricular enlargement suggested. cc: MD Segun Almanzar MD
[2017-04-27] MEDS: PRAVACHOL PO SCH (20:28)
[2017-04-27] MEDS: MAG-OX PO SCH (20:28)
[2017-04-28] MEDS: LOPRESSOR PO SCH ×4 (04:20→21:32)
[2017-04-28] MEDS: CAPOTEN PO SCH ×3 (04:20→21:32)
[2017-04-28 05:21] LABS: HEMATOCRIT 31.4 % (42.0-52.0); HEMOGLOBIN 9.3 g/dL (14.0-18.0); MCH 22.6 PG (27-31); MCHC 29.6 g/dL (33-37); MCV 76.4 FL (81-99); MPV 11.9 FL (7.4-10.4); RBC 4.11 XMIL (4.7-6.1)
[2017-04-28 05:39] LABS: CALCIUM 8.1 mg/dL (8.8-10.2); POTASSIUM 3.9 mmol/L (3.5-5.1)
[2017-04-28] MEDS: CARAFATE LIQUID PO SCH ×4 (05:58→21:31)
[2017-04-28] MEDS: MERREM 500 MG in NS 50 ML IV SCH (05:58)
[2017-04-28] MEDS: HUMULIN R SUBQ SCH ×4 (05:58→21:43)
[2017-04-28 06:36] LABS: CK INDEX 3.2 (0.0-2.5); CK-MB 21.29 ng/mL (0.0-5.0)
--- NOTE | 2017-04-28 06:57 | EKG Report ---
Test Performed on : 04/28/2017 06:31:48 AM Test Reason : DE anterior. Blood Pressure : / mmHG Vent. Rate : 075 BPM Atrial Rate : 075 BPM P-R Int : 164 ms QRS Dur : 084 ms QT Int : 354 ms P-R-T Axes : 031 -33 021 degrees QTc Int : 395 ms Normal sinus rhythm. Left axis deviation Low voltage QRS Inferior infarct (cited on or before 25-APR-2017) Possible Anterolateral infarct (cited on or before 25-APR-2017) Abnormal ECG When compared with ECG of 27-APR-2017 06:12, No significant change was found Confirmed by Erna Ahuja MD ([id number]) on 04/29/2017 1:00:13 PM
[2017-04-28] MEDS: NEURONTIN PO SCH ×3 (08:13→21:31)
[2017-04-28] MEDS: ASPIRIN PO SCH (08:13)
[2017-04-28] MEDS: WELLBUTRIN XL PO SCH (08:13)
[2017-04-28] MEDS: THERA M PLUS PO SCH (08:13)
[2017-04-28] MEDS: TOPAMAX PO SCH ×2 (08:14→21:32)
[2017-04-28] MEDS: PROTONIX PO SCH ×2 (08:14→21:32)
[2017-04-28] MEDS: CYMBALTA PO SCH (08:14)
[2017-04-28] MEDS: FOLIC ACID PO SCH (08:14)
[2017-04-28] MEDS: VENOFER IV SCH (08:14)
--- NOTE | 2017-04-28 09:25 | PROGRESS NOTE ---
DATE: 04/28/2017 CHIEF COMPLAINT: Chest pain. SUBJECTIVE: Mr. Marcial is feeling better today. He is not having any more pain. Yesterday, he underwent a gated myocardial perfusion study at rest. This study shows that his ejection fraction is 38% with akinesis of apical anterolateral portion of the left ventricle consistent with an extensive anteroapical and lateral myocardial infarction. The patient is eating breakfast and he feels comfortable today. He says that he could not sleep well last night. OBJECTIVE: Vital signs: Blood pressure is 102/65, temperature 98.9, pulse 79, respirations 14. General: He is awake, alert, oriented, in no distress. HEENT: Unremarkable. Chest: Clear to auscultation and percussion. Cardiac: Heart sounds regular and rhythmic, no gallop or murmur. Abdomen: Soft, nontender, no masses, no hepatomegaly. Extremities: Good pulses, no edema. Neurological: Follows commands, moves 4l extremities. BLOOD WORK: Sodium 137, potassium 3.9, BUN 17, creatinine 1.3. CK has come down to 666, CK-MB to 21.29, and troponin is coming down to 3.420. EKG: EKG done this morning at 6:31 indicates sinus rhythm with left axis deviation and extensive anteroapical MD. IMPRESSION: 1. Patient who comes in with acute myocardial infarction, anteroapical lateral. At this time, he is chest pain free. 2. Left ventricular systolic dysfunction post myocardial infarction. 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 Ejection fraction down to 38% with radiographic suggestion of pulmonary congestion. 3. History of previous stent and coronary intervention. 4. Iron-deficiency anemia. 5. History of diabetes mellitus and a remote history of pericarditis. RECOMMENDATION: At this point in time, we will continue to optimize medical therapy with Capoten, spironolactone. We will arrange for a thallium myocardial perfusion study Tuesday and Tuesday prior to discharge. If there is significant viability, I may consider pursuing a left heart catheterization. At this time, the patient appears to be hemodynamically stable. cc: Segun Reyez MD
[2017-04-28] MEDS: ALDACTONE PO SCH (10:20)
[2017-04-28] MEDS: LOVENOX SUBQ SCH ×2 (10:21→21:38)
--- NOTE | 2017-04-28 11:29 | PROGRESS NOTE ---
DATE: 04/28/2017 SUBJECTIVE: The patient's shortness of breath has improved. Overall he is clinically improved. OBJECTIVE: Blood pressure was 102/65, heart rate 79, respiratory 14, temperature 98.9 degrees, 95% on room air. No fevers.Cardiovascular: Regular rate and rhythm. Pulmonary: Occasional rales at the bases. GI: Soft, nontender, nondistended. Bowel sounds are positive. LABORATORY DATA: White count 8, hemoglobin and hematocrit 9 and 31, platelets 173,000. Creatinine is 1.3. Phos is 2.4. Troponin today is 3.42. PROBLEM LIST: 1. [id number] myocardial infarction. We will continue support. We will continue aspirin, beta racquel, statins. Cardiology is primarily managing. He is still on full anticoagulation. Planning to do a thallium viability scan on Tuesday per Cardiology recommendations. 2. CHF exacerbation. I think the infiltrates that are looking at are more consistent with pulmonary edema. Just a clinical assessment. I think he would benefit from some diuresis versus antibiotics. He did have a little bit of white count yesterday but just looking at the infiltrates themselves it might not be more pneumonia. 3. Acute kidney injury. We will continue to monitor closely on nephrotoxic agents. He is on lisinopril and now some Lasix so we ought to follow closely. 4. Anemia. Continue iron supplementation and follow. 5. Diabetes. Patient is otherwise stable on current regimen. 6. Disposition pending Cardiology workup but that sounds like he is probably not going to go anywhere until Tuesday pending the rest of his workup. cc: David Pruett MD
[2017-04-28] MEDS: MIRALAX PO SCH (17:39)
[2017-04-28] MEDS ORDERED: REMERON PO SCH (21:00)
[2017-04-28] MEDS: MAG-OX PO SCH (21:31)
[2017-04-28] MEDS: LACTULOSE PO SCH (21:31)
[2017-04-28] MEDS: PRAVACHOL PO SCH (21:32)
[2017-04-29] MEDS: CARAFATE LIQUID PO SCH ×6 (03:30→20:47)
[2017-04-29] MEDS: LOPRESSOR PO SCH ×5 (03:30→20:49)
[2017-04-29] MEDS: CAPOTEN PO SCH ×3 (05:12→20:44)
[2017-04-29 05:33] LABS: HEMATOCRIT 29.6 % (42.0-52.0); HEMOGLOBIN 8.8 g/dL (14.0-18.0); MCH 22.9 PG (27-31); MCHC 29.7 g/dL (33-37); MCV 77.1 FL (81-99); MPV 11.9 FL (7.4-10.4); RBC 3.84 XMIL (4.7-6.1)
[2017-04-29 05:59] LABS: CALCIUM 8.3 mg/dL (8.8-10.2); POTASSIUM 4.2 mmol/L (3.5-5.1)
--- NOTE | 2017-04-29 06:12 | EKG Report ---
Test Performed on : 04/29/2017 05:35:25 AM Test Reason : Acute [place] Blood Pressure : / mmHG Vent. Rate : 064 BPM Atrial Rate : 064 BPM P-R Int : 166 ms QRS Dur : 084 ms QT Int : 372 ms P-R-T Axes : 035 -40 029 degrees QTc Int : 383 ms Normal sinus rhythm. Left axis deviation Low voltage QRS Inferior infarct (cited on or before 25-APR-2017) Cannot rule out Anteroseptal infarct (cited on or before 25-APR-2017) Abnormal ECG When compared with ECG of 28-APR-2017 06:31, (Unconfirmed) No significant change was found Confirmed by Erna Ahuja MD ([id number]) on 04/29/2017 1:02:50 PM
[2017-04-29] MEDS: HUMULIN R SUBQ SCH ×4 (06:19→20:46)
[2017-04-29 06:27] LABS: CK INDEX 3.5 (0.0-2.5); CK-MB 13.09 ng/mL (0.0-5.0)
--- NOTE | 2017-04-29 07:26 | Diag Imaging Result Doc PS360 ---
EXAM: CHEST-PORTABLE HISTORY: chf TECHNIQUE: Erect AP portable at 0540 COMMENT: There is no evidence of acute cardiac or pulmonary disease. Compared to 04/25/2017 there has been no significant change. IMPRESSION: Stable chest. Electronically signed by Lamont Paul 04/29/2017 7:24 AM
[2017-04-29] MEDS ORDERED: LASIX IV SCH (09:00)
[2017-04-29] MEDS: MIRALAX PO SCH (09:29)
[2017-04-29] MEDS: NEURONTIN PO SCH ×3 (09:31→22:08)
[2017-04-29] MEDS: ASPIRIN PO SCH (09:32)
[2017-04-29] MEDS: LACTULOSE PO SCH ×2 (09:32→20:47)
[2017-04-29] MEDS: WELLBUTRIN XL PO SCH (09:32)
[2017-04-29] MEDS: ALDACTONE PO SCH (09:32)
[2017-04-29] MEDS: VENOFER IV SCH (09:32)
[2017-04-29] MEDS: THERA M PLUS PO SCH (09:32)
[2017-04-29] MEDS: TOPAMAX PO SCH ×2 (09:33→20:48)
[2017-04-29] MEDS: FOLIC ACID PO SCH (09:33)
[2017-04-29] MEDS: CYMBALTA PO SCH (09:33)
[2017-04-29] MEDS: PROTONIX PO SCH ×2 (09:33→20:48)
[2017-04-29] MEDS: LOVENOX SUBQ SCH ×3 (09:33→23:13)
--- NOTE | 2017-04-29 09:47 | PROGRESS NOTE ---
DATE: 04/29/2017 CHIEF COMPLAINT: Chest discomfort. SUBJECTIVE: Mr. Marcial is feeling better today. He is not having any chest pain. No shortness of breath. Blood pressure has been running somewhat low. OBJECTIVE: Vital signs: Temperature is 98.3, pulse 67, respirations 16, and blood pressure 93/58. General: He is awake, alert, oriented, and in no distress. HEENT: Unremarkable. Chest: Clear to auscultation and percussion. Cardiovascular: Heart sounds are regular and rhythmic. No gallop or murmur. Abdomen: Soft and nontender. No masses. No hepatomegaly. Extremities: The extremities good pulses. No peripheral edema. Neurological: He follows commands and moves all extremities. LABORATORY DATA: White count is 8,490, hemoglobin 8.8, hematocrit 29.6, and platelet count 171,000. Sodium is 139, potassium 4.2, BUN 15, and creatinine 1.3. BUN and creatinine remain stable. Potassium is within physiologic range. His CPK is dropping now to 369 from 666 yesterday. CK-MB is down to 13.09 and troponin is continuing to go down to 3.040. 12 lead EKG done today shows sinus rhythm with left axis deviation and a pattern of an anterior [place]. IMPRESSION: 1. The patient has suffered an anterior myocardial infarction with extensive anteroapical defect noted on myocardial perfusion resting study. The ejection fraction is moderately impaired at 38%. 2. Previous coronary artery disease with previous stent. 3. History of diabetes mellitus. 4. Remote history of pericarditis. 5. Iron deficiency anemia. RECOMMENDATIONS: At this point in time we will prepare him for a thallium viability study this coming Tuesday. We will watch him over the 2 or 3 days. We will make a decision about getting him a vest for prevention of sudden cardiac . We will also plan on getting him started on warfarin for prevention of embolic phenomenon coming from the anteroapical [place]. Further advice will be forthcoming. Thank you for the opportunity to participate in his evaluation. cc: Segun Reyez MD
--- NOTE | 2017-04-29 11:01 | PROGRESS NOTE ---
DATE: 04/29/2017 SUBJECTIVE: The patient has no focal complaints. He seems to be doing better. LABORATORY DATA: Unremarkable. OBJECTIVE: Blood pressure 93/60, heart rate 61, respiratory rate 18, temperature 98 degrees, 99% on room air. Cardiovascular: Regular rate and rhythm. Pulmonary: Bilateral breath sounds. Clear to auscultation. GI: Abdomen soft, nontender, nondistended. Bowel sounds are positive. PROBLEMS: 1. [id number] myocardial infarction. He is on aspirin anticoagulation, beta-racquel, statin. Cardiology will evaluate thallium scan on Tuesday and determine further imaging or testing. 2. Congestive heart failure exacerbation, acute. We will continue diuretic therapy for now and monitor his sodium and renal function closely. 3. Acute kidney injury; appears to be stable. 4. Anemia; appears to be stable on current iron supplementation. 5. Diabetes also stable on current medications. DISPOSITION: Pending possible further evaluation with left heart catheterization pending his Thallium scan. We will continue to follow. cc: David Pruett MD
[2017-04-29] MEDS: XOPENEX NEB INH PRN (12:58)
[2017-04-29] MEDS: PRAVACHOL PO SCH (20:48)
[2017-04-29] MEDS: MAG-OX PO SCH (20:48)
[2017-04-30] MEDS: CARAFATE LIQUID PO SCH ×4 (03:00→20:37)
[2017-04-30] MEDS: LOPRESSOR PO SCH ×4 (03:11→20:40)
[2017-04-30] MEDS: CAPOTEN PO SCH ×3 (04:05→21:45)
[2017-04-30 05:45] LABS: HEMATOCRIT 31.6 % (42.0-52.0); HEMOGLOBIN 9.4 g/dL (14.0-18.0); MCHC 29.7 g/dL (33-37); MCV 77.3 FL (81-99); MPV 11.7 FL (7.4-10.4); RBC 4.09 XMIL (4.7-6.1)
[2017-04-30 06:00] LABS: CALCIUM 8.6 mg/dL (8.8-10.2); POTASSIUM 3.7 mmol/L (3.5-5.1)
[2017-04-30] MEDS: HUMULIN R SUBQ SCH ×4 (06:42→22:12)
[2017-04-30] MEDS: THERA M PLUS PO SCH (09:17)
[2017-04-30] MEDS: ALDACTONE PO SCH (09:17)
[2017-04-30] MEDS: ASPIRIN PO SCH (09:17)
[2017-04-30] MEDS: WELLBUTRIN XL PO SCH (09:17)
[2017-04-30] MEDS: FOLIC ACID PO SCH (09:17)
[2017-04-30] MEDS: PROTONIX PO SCH ×2 (09:17→20:39)
[2017-04-30] MEDS: CYMBALTA PO SCH (09:17)
[2017-04-30] MEDS: MIRALAX PO SCH (09:18)
[2017-04-30] MEDS: TOPAMAX PO SCH ×2 (09:18→20:39)
[2017-04-30] MEDS: LOVENOX SUBQ SCH ×2 (09:18→22:12)
[2017-04-30] MEDS: LASIX PO SCH (09:19)
[2017-04-30] MEDS: NEURONTIN PO SCH ×3 (10:50→20:40)
[2017-04-30] MEDS ORDERED: ULTRAM PO PRN (13:30)
[2017-04-30] MEDS ORDERED: ULTRAM PO ONE (13:30)
--- NOTE | 2017-04-30 13:59 | PROGRESS NOTE ---
DATE: 04/30/2017 SUBJECTIVE: Patient has no focal complaints. OBJECTIVE: Blood pressure was 104/66, heart rate 64, respiratory rate 14, temperature 98 degrees, 100% on room air. Cardiovascular: Pulmonary: Bilateral breath sounds. Clear to auscultation. GI: Soft, nontender, nondistended. Bowel sounds are positive. LABORATORY DATA: Hemoglobin and hematocrit 9 and 31, platelets 191,000. White count 8. Creatinine 1.3. PROBLEM LIST: 1. Acute myocardial infarction. Will continue medical management. Plan is for the thallium scan imaging on Tuesday to evaluate for viability and then he may require a cardiac cath and percutaneous coronary intervention pending that test. 2. Chronic heart failure. He appears to be stable. He is on diuretic therapy. The rest of his numbers look stable. 3. Chronic renal failure, stage 2. Continue monitor creatinine on his HATTIE inhibitor, Lasix, and Aldactone. 4. Anemia appears to be stable currently. 5. Diabetes, stable on current medications. DISPOSITION: Pending thallium scan on Tuesday. cc: David Pruett MD
[2017-04-30] MEDS ORDERED: PERICOLACE PO ONE (15:19)
[2017-04-30] MEDS ORDERED: LACTULOSE PO PRN (15:20)
[2017-04-30] MEDS: LACTULOSE PO SCH (15:24)
--- NOTE | 2017-04-30 20:08 | PROGRESS NOTE ---
DATE: 04/30/2017 SUBJECTIVE: Patient continues without chest discomfort or dyspnea on room air. OBJECTIVE: Vital Signs: Blood pressure 98/61, heart rate 60 and regular. Oxygen saturation 97% on room air. Neck: There is no significant jugular venous distention. Chest: Clear to auscultation. Cardiac exam: Reveals a regular rate and rhythm without appreciable murmur or gallop. There is no evidence of peripheral edema. IMPRESSION: 1. Atherosclerotic coronary disease with evidence of extensive anteroapical defect on myocardial perfusion resting study. Ejection fraction 38%. 2. Previous coronary artery disease with history of previous myocardial infarction and angioplasty/stent. 3. Diabetes mellitus. 4. Iron-deficiency anemia. 5. History of previous heavy cigarette use in the past. RECOMMENDATIONS: 1. Continue current cardiovascular regimen unchanged with captopril, metoprolol, spironolactone, aspirin and Lovenox. 2. Thallium study for viability planned for Tuesday. 3. Reevaluation with coronary angiography being considered possibly for Tuesday. cc: Tutu Covarrubias MD
[2017-04-30] MEDS: PERICOLACE PO SCH (20:38)
[2017-04-30] MEDS: MAG-OX PO SCH (20:38)
[2017-04-30] MEDS: PRAVACHOL PO SCH (20:40)
[2017-04-30] MEDS ORDERED: LACTULOSE PO SCH (21:00)
[2017-05-01] MEDS: LOPRESSOR PO SCH ×4 (01:32→21:23)
[2017-05-01] MEDS: CARAFATE LIQUID PO SCH ×4 (01:39→21:21)
[2017-05-01] MEDS: CAPOTEN PO SCH ×2 (04:54→15:01)
[2017-05-01 05:12] LABS: HEMATOCRIT 33.6 % (42.0-52.0); MCH 23.1 PG (27-31); MCHC 29.8 g/dL (33-37); MCV 77.8 FL (81-99); MPV 12.2 FL (7.4-10.4); RBC 4.32 XMIL (4.7-6.1)
[2017-05-01 05:47] LABS: CALCIUM 8.5 mg/dL (8.8-10.2); POTASSIUM 3.8 mmol/L (3.5-5.1)
[2017-05-01] MEDS: HUMULIN R SUBQ SCH ×4 (06:27→21:20)
[2017-05-01] MEDS: PROTONIX PO SCH ×2 (09:25→21:23)
[2017-05-01] MEDS: NEURONTIN PO SCH ×3 (09:25→21:22)
[2017-05-01] MEDS: LASIX PO SCH (09:26)
[2017-05-01] MEDS: ASPIRIN PO SCH (09:26)
[2017-05-01] MEDS: ALDACTONE PO SCH (09:26)
[2017-05-01] MEDS: FOLIC ACID PO SCH (09:26)
[2017-05-01] MEDS: LOVENOX SUBQ SCH ×2 (09:27→21:20)
[2017-05-01] MEDS: TOPAMAX PO SCH ×2 (09:27→21:23)
[2017-05-01] MEDS: MIRALAX PO SCH (09:27)
[2017-05-01] MEDS: CYMBALTA PO SCH (09:27)
[2017-05-01] MEDS: WELLBUTRIN XL PO SCH (09:27)
[2017-05-01] MEDS: THERA M PLUS PO SCH (09:27)
[2017-05-01] MEDS: LACTULOSE PO SCH ×2 (14:48→21:21)
--- NOTE | 2017-05-01 15:45 | PROGRESS NOTE ---
DATE: 05/01/2017 SUBJECTIVE: Patient has no focal complaints. OBJECTIVE: Vital signs: Blood pressure 106/59, heart rate 63, respiratory rate 19, temperature 97.6 degrees, 99% on room air. Cardiovascular: Regular rate and rhythm. Pulmonary: Bilateral breath sounds. Clear to auscultation. GI: Soft, nontender, nondistended. Bowel sounds are positive. LABORATORY DATA: Hemoglobin and hematocrit 10 and 33, white blood cell count 9.6, platelets 220,000, creatinine 1.4. PROBLEM LIST: 1. Acute myocardial infarction. We will continue treatment. Plan is for thallium viability study Tuesday and decide if we are going to do any cardiac catheterization. 2. Congestive heart failure. He has got mild exacerbation. Will continue treatment and follow. 3. Anemia. Appears to be stable. 4. Chronic renal failure stage 2. He had HATTIE inhibitor, Lasix. Creatinine is stable. 5. Diabetes appears to be under control. DISPOSITION: He seems to be doing okay. We are pending thallium imaging and decide about catheterization. I am going to repeat his chest x-ray tomorrow. He has some complaints over his bowel regimen. He is still not having bowel movements so we are going to give him some medications for that and we will follow. At this point I have stopped antibiotics because even though the CT scan was read as infiltrates I think that was nonspecific. He does not have a white count, fever. Repeat chest x-ray did not show pneumonia so he is not currently on antibiotics. We will continue to follow. cc: David Pruett MD
--- NOTE | 2017-05-01 18:53 | PROGRESS NOTE ---
DATE: 05/01/2017 SUBJECTIVE: Patient reports some postural lightheadedness. There has been no orthopnea, chest discomfort or dyspnea. OBJECTIVE: Vital Signs: Blood pressure 96/60, heart rate 62 and regular, oxygen saturation 97% on room air. Neck: There is no significant jugular venous distention. Chest: Clear to auscultation. Cardiac Exam: Reveals a regular rate and rhythm without appreciable murmur or gallop. There is no evidence of peripheral edema. IMPRESSION: 1. Postural lightheadedness. Suspect relatively lower blood pressure. Suspect orthostatic hypotension. 2. Atherosclerotic coronary disease with evidence of extensive anteroapical defect on myocardial perfusion study. Left ventricular ejection fraction 38%. 3. Previous coronary artery disease with prior myocardial infarction and subsequent angioplasty/stent. Details not available. 4. Diabetes mellitus. 5. Iron deficiency anemia. RECOMMENDATIONS: 1. Discontinue Lasix. 2. Continue current cardiovascular regimen, otherwise unchanged. 3. Thallium study for viability planned for tomorrow. 4. Reevaluation with coronary angiography being considered for later in the week. cc: Tutu Covarrubias MD
[2017-05-01] MEDS: MAG-OX PO SCH (21:22)
[2017-05-01] MEDS: PERICOLACE PO SCH (21:22)
[2017-05-01] MEDS: PRAVACHOL PO SCH (21:22)
[2017-05-02] MEDS: CAPOTEN PO SCH ×4 (01:04→20:56)
[2017-05-02] MEDS: LOPRESSOR PO SCH ×4 (03:18→20:57)
[2017-05-02] MEDS: CARAFATE LIQUID PO SCH ×4 (04:21→20:56)
[2017-05-02 05:01] LABS: HEMATOCRIT 33.3 % (42.0-52.0); HEMOGLOBIN 9.9 g/dL (14.0-18.0); MCH 23.5 PG (27-31); MCHC 29.7 g/dL (33-37); MCV 78.9 FL (81-99); RBC 4.22 XMIL (4.7-6.1)
[2017-05-02 05:24] LABS: CALCIUM 8.6 mg/dL (8.8-10.2)
[2017-05-02] MEDS: HUMULIN R SUBQ SCH ×4 (06:24→20:57)
--- NOTE | 2017-05-02 07:21 | Diag Imaging Result Doc PS360 ---
EXAM: CHEST-PORTABLE HISTORY: dyspnea TECHNIQUE: Erect AP portable at 0540 COMMENT: The inspiration is suboptimal. Compared to 04/29/2017 there has been no significant change. IMPRESSION: Stable chest. Electronically signed by Lamont Paul 05/02/2017 7:19 AM
--- NOTE | 2017-05-02 08:34 | PROGRESS NOTE ---
DATE: 05/02/2017 CHIEF COMPLAINT: Chest discomfort. SUBJECTIVE: Mr. Marcial is doing better today as far as chest symptoms. His main issue is back pain. 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 He is requesting a walker to get up and about. OBJECTIVE: His blood pressure is 97/58, temperature 98.4, pulse 60, respirations 14. He is awake, alert and oriented, in no distress. HEENT is unremarkable. Chest: Clear to auscultation and percussion. Heart sounds are regular and rhythmic. No gallop or murmur. Abdomen is nontender, soft. No masses. No hepatomegaly. Extremities showed decreased pulses, no edema. Neurologic: Moves all 4 extremities, follows commands. DIAGNOSTIC DATA: White count is 8580, hemoglobin 9.9%, hematocrit 33%. Sodium is 139, potassium is 4.0, BUN is 23, creatinine 1.4. Chest x-ray done today shows stable findings. No CHF. Telemetry shows a 3-beat run of ventricular tachycardia noted on 04/26/2017, so this a few days ago. Last EKG shows sinus rhythm with left axis and anterior CO on 04/29/2017. IMPRESSION: 1. The patient presented with an acute anterior wall myocardial infarction. The patient demonstrates significant left ventricular dysfunction by noninvasive imaging. 2. Previous myocardial infarction in the past with previous stent. 3. Chronic back pain. 4. History of diabetes mellitus. 5. Iron deficiency anemia. 6. Remote history of pericarditis. RECOMMENDATIONS: At this point in time, Lasix has been discontinued because of low blood pressure. We will go ahead and complete the thallium study today and based on that, we will proceed with either a left heart catheterization or discharge home on medical therapy with addition of a vest to manage possible sudden cardiac . In 3 months from now, with adequate medical therapy, he will be a candidate for AICD. Further intervention will depend on the results of the aforementioned thallium study. Thank you again for asking us to participate in his evaluation. cc: Segun Reyez MD
[2017-05-02] MEDS: FOLIC ACID PO SCH (10:00)
[2017-05-02] MEDS: TOPAMAX PO SCH ×2 (10:00→20:57)
[2017-05-02] MEDS: ASPIRIN PO SCH (10:00)
[2017-05-02] MEDS: THERA M PLUS PO SCH (10:00)
[2017-05-02] MEDS: LOVENOX SUBQ SCH ×2 (10:00→21:00)
[2017-05-02] MEDS: WELLBUTRIN XL PO SCH (10:00)
[2017-05-02] MEDS: ALDACTONE PO SCH (10:00)
[2017-05-02] MEDS: NEURONTIN PO SCH ×3 (10:00→20:56)
[2017-05-02] MEDS: PROTONIX PO SCH ×2 (10:00→21:07)
[2017-05-02] MEDS: CYMBALTA PO SCH (10:00)
[2017-05-02] MEDS: MIRALAX PO SCH (10:01)
[2017-05-02] MEDS: LACTULOSE PO SCH ×3 (14:18→21:00)
--- NOTE | 2017-05-02 17:17 | PROGRESS NOTE ---
DATE: 05/02/2017 SUBJECTIVE: The patient is resting comfortably in bed. He has no complaints. OBJECTIVE: Vital Signs: Temperature 98 degrees, blood pressure 91/59, heart rate 60, respirations 20, O2 saturations 100% on room air. General: This is an elderly male lying in bed in no acute distress. Head: Normocephalic, atraumatic. Heart: S1, S2. Normal. Regular rate and rhythm. Lungs: Clear to auscultation bilaterally. Abdomen: Positive bowel sounds. Soft, nontender, nondistended. Extremities: No edema. No cyanosis. No calf tenderness. Neurologic: The patient is alert oriented x3. LABS: Sodium 139, potassium 4, chloride 103, CO2 22, BUN 23, creatinine 1.4, glucose 158. ASSESSMENT AND PLAN: 1. Acute myocardial infarction. Continue on the current cardiac medications as directed by the chief juvenile probation officer. The patient is scheduled for a thallium study today. 2. Acute kidney injury. The patient's Lasix has been discontinued. Will continue to monitor the patient's renal function closely. 3. Iron-deficiency anemia. The patient's hemoglobin and hematocrit are stable. 4. Constipation. Continue on scheduled laxative therapy. 5. Diabetes mellitus type 2. Continue on insulin sliding scale. Metformin is currently on hold. cc: Talia Virk MD
[2017-05-02] MEDS: PRAVACHOL PO SCH (20:56)
[2017-05-02] MEDS: PERICOLACE PO SCH (20:56)
[2017-05-02] MEDS: MAG-OX PO SCH (20:57)
[2017-05-03] MEDS: LOPRESSOR PO SCH ×3 (02:38→15:43)
[2017-05-03] MEDS: CARAFATE LIQUID PO SCH ×3 (02:39→15:43)
[2017-05-03] MEDS: CAPOTEN PO SCH ×2 (04:53→13:00)
[2017-05-03 05:32] LABS: CALCIUM 8.9 mg/dL (8.8-10.2); POTASSIUM 3.8 mmol/L (3.5-5.1)
[2017-05-03] MEDS: HUMULIN R SUBQ SCH ×3 (06:43→17:13)
[2017-05-03] MEDS ORDERED: HEPARIN 1000 UNITS/NS 2,000 UNIT/1,000 ML IV.SOLN ONE (12:47)
[2017-05-03] MEDS ORDERED: VERSED ONE (13:34)
[2017-05-03] MEDS ORDERED: NS 1,000 ML ONE (13:35)
[2017-05-03] MEDS ORDERED: ANESTHESIA PB SET 88 IN 5742 ONE (13:35)
[2017-05-03] MEDS ORDERED: DEMEROL ONE ×2 (13:35→14:29)
[2017-05-03] MEDS ORDERED: SODIUM BICARBONATE 8.4% 150 MEQ in D5W 1,000 ML IV SCH (14:02)
[2017-05-03] MEDS ORDERED: MAALOX PLUS LIQUID PO PRN (15:19)
[2017-05-03] MEDS: CYMBALTA PO SCH (15:39)
[2017-05-03] MEDS: ALDACTONE PO SCH (15:39)
[2017-05-03] MEDS: ASPIRIN PO SCH (15:39)
[2017-05-03] MEDS: FOLIC ACID PO SCH (15:39)
[2017-05-03] MEDS: NEURONTIN PO SCH ×2 (15:40)
[2017-05-03] MEDS: LACTULOSE PO SCH (15:40)
[2017-05-03] MEDS: MIRALAX PO SCH (15:40)
[2017-05-03] MEDS: PROTONIX PO SCH (15:41)
[2017-05-03] MEDS: THERA M PLUS PO SCH (15:41)
[2017-05-03] MEDS: LOVENOX SUBQ SCH (15:41)
[2017-05-03] MEDS: TOPAMAX PO SCH (15:41)
[2017-05-03] MEDS: WELLBUTRIN XL PO SCH (15:41)
[2017-05-03 15:54] VITALS: BP 92/60
--- NOTE | 2017-05-03 15:56 | CARDIAC CATH REPORT ---
DATE: 05/03/2017 PROCEDURES PERFORMED: 1. Left heart catheterization. 2. Selective bilateral coronary angiogram. 3. Left ventriculogram. 4. Opacification of right femoral artery. HISTORY: This is a 71-year-old male who presented to the hospital with chest pain. He was diagnosed with acute anterior AR. He has been treated medically. Prior to discharge, we obtained a thallium viability study that showed viability of inferior wall as well as the septum and part of the anterior wall. I recommended left heart catheterization to assess coronary anatomy and possibly offer revascularization. Benefits, risks and complications were discussed with him, and he requested to proceed. Because of impaired renal function, we used Visipaque. DESCRIPTION OF PROCEDURE: The patient came into the cardiac slab installer in the fasting state. He received Versed and Demerol given in divided doses as outlined in the medication administration record for the purposes of sedation. The right groin was infiltrated with lidocaine 1%. A 6- Honduran sheath was inserted into the right femoral artery by following the modified Seldinger technique. Using a 6-Honduran left Josh 4, the left coronary artery was selectively opacified. Using a right Josh catheter, the aortic valve was negotiated, left ventricular pressure was measured, and then left ventriculogram was performed in the 60 degree ANDRES projection and 30 degree GRULLON projection by hand injection. A flush injection of the right coronary artery was performed because with the 6- Honduran right Josh catheter, we could not obtain a selective engagement. Then I switched over to a modified Amplatz right catheter 4-Honduran and with this catheter was able to opacify the right coronary artery. Then the catheter was removed, the sheath was flushed, and we opacified the right femoral artery. The puncture had been made right at the bifurcation of the femoral artery, and therefore we chose to remove the sheath manually. Hemostasis was accomplished by hand compression. The patient tolerated the procedure well without any immediate complications. SUMMARY OF HEMODYNAMIC FINDINGS: Central aortic pressure is 96/61. Left ventricular pressure is 101/26, post LV gram 98/25. Final aortic pressure 98/56. SUMMARY OF ANGIOGRAPHIC FINDINGS: 1. Left main coronary artery. This vessels appears to be angiographically normal and divides into the LAD and circumflex. 2. Left anterior descending coronary artery. This vessel shows no obvious critical lesions proximally. It gives rise to a first diagonal branch which has an 80% ostial stenosis and at the place of previously stented segment, the LAD is completely occluded. Some of the LAD is noted through collaterals coming from the right side via septal branch. 3. Circumflex coronary artery. The circumflex coronary artery is a nondominant vessel. It gives rise to a sinus chas branch. It gives rise to a high lateral vessel. In the midsegment of the circumflex, there is a significant stenosis of 75%. Then there is an additional distal stenosis of about 60% to 70% prior to the most distal or terminal obtuse marginal branch. 4. Right coronary artery: The right coronary artery is a dominant vessel. Proximally shows a 50% stenosis in the midsection, and then after giving rise to an acute marginal branch, the right coronary artery becomes completely occluded. The AV branch or AV branch segment is completely occluded. The PDA and the posterolateral vessel originate from the AV branch segment that is totally occluded. There are collaterals coming through the right via septal lead miner blasting up into the LAD. LEFT VENTRICULOGRAM: Left ventriculogram in the 30 degree GRULLON projection and 60 degree ANDRES projection reveals enlargement of the left ventricular chamber with impairment of the anterior apical segment. The global ejection fraction is estimated at 35% to 40%. CONCLUSIONS: 1. Severe multivessel coronary artery disease. The patient has total occlusion of the LAD at a previously stented segment with a severe stenosis of a major diagonal branch. In addition, there is significant stenosis of the proximal to mid circumflex and also an additional stenosis of the distal circumflex. The right coronary artery is occluded in the AV branch segment. 2. Elevated LVEDP. 3. Impaired left ventricular function, moderate range, 35% to 40%. Anterior apical akinesis. 4. No aortic stenosis. No mitral regurgitation. 5. Extensive collateralization of distally occluded RCA. also collateralization from proximal RCA to septal LAD branch. RECOMMENDATIONS: The patient has been advised to consider pursuing invasive assessment at [facility] to attempt percutaneous angioplasty of the LAD and if that fails, pursue open heart surgery, bypassing the major diagonal, the circumflex ,possibly the LAD proper and hopefully one of the branches of the right coronary artery. The patient understands and requests to proceed with that plan. We are going to get him started on IV bicarbonate to protect his kidneys. Further advice will be forthcoming. cc: Segun Reyez MD MTDD
--- NOTE | 2017-05-03 17:31 | PROGRESS NOTE ---
DATE: 05/03/2017 SUBJECTIVE: The patient is sitting up in a chair. No acute events noted overnight. OBJECTIVE: Vital Signs: Temperature 97 degrees, blood pressure 92/60, heart rate 65, respirations 13, O2 saturations 97% on room air. General: This is an elderly male, sitting in a chair in no acute distress. Head: Normocephalic, atraumatic. Heart: S1, S2. Normal. Lungs: Clear to auscultation bilaterally. Abdomen: Positive bowel sounds. Soft, nontender, nondistended. Extremities: No edema. The patient has a small area of erythema on his left forearm where his IV used to be. Neurologic: The patient is alert and oriented x3. LABS: Sodium 141, potassium 3.8, chloride 105, CO2 22, BUN 26, creatinine 1.5, glucose 128. ASSESSMENT AND PLAN: 1. Acute DC. The patient is scheduled to undergo a left heart catheterization today. Further recommendations as per the county attorney. 2. Acute kidney injury on chronic kidney disease. The patient's creatinine has slowly been rising. The patient has been started on fluids by the county attorney. 3. Diabetes mellitus type 2. Continue on sliding scale insulin. 4. Diabetic neuropathy. Continue on Neurontin. cc: Talia Virk MD
--- NOTE | 2017-05-03 17:42 | Diag Imaging Result Doc PS360 ---
EXAM: EXTREM UPPER W/O CONTRAST HISTORY: left arm abscess TECHNIQUE: CT of the left forearm without contrast COMMENT: There is no evidence of periosteal reaction lysis or soft tissue calcification. No definite fluid collections are demonstrated in the area of the skin marker. No other radiopaque foreign bodies are demonstrated. IMPRESSION: No definite abnormality. Electronically signed by Lamont Paul 05/03/2017 5:40 PM
--- NOTE | 2017-05-04 05:22 | EKG Report ---
Test Performed on : 05/03/2017 4:35:59 PM Test Reason : POST CATH Blood Pressure : / mmHG Vent. Rate : 061 BPM Atrial Rate : 061 BPM P-R Int : 182 ms QRS Dur : 100 ms QT Int : 448 ms P-R-T Axes : 046 -27 029 degrees QTc Int : 450 ms Normal sinus rhythm. Low voltage QRS Inferior infarct (cited on or before 25-APR-2017) Anteroseptal infarct (cited on or before 25-APR-2017) ACUTE NE / STEMI Abnormal ECG When compared with ECG of 29-APR-2017 05:35, T wave inversion now evident in Anterior leads QT has lengthened Confirmed by Erna Ahuja MD ([id number]) on 05/04/2017 1:32:31 PM
--- NOTE | 2017-05-09 13:05 | Diag Imaging Result Document ---
PROCEDURE NAME: MYOCARDIAL PERFU SCAN, REST - 05/02/2017 PROCEDURE PERFORMED: Viability thallium scan. DESCRIPTION OF PROCEDURE: There were 3.7 mCi of thallium 201 injected. Images were acquired at 15 minutes, 4 hours, and 24 hours. Images revealed low area of viability in the interventricular septum. Rest of the myocardium was nonviable. There is severe grade, fixed defect in the inferior wall, severe grade, fixed defect in the distal anteroapical wall, diagnostic of infarct or scar. In addition, there is a low-grade viability in the base of the inferior wall. CONCLUSIONS: 1. Low-grade viability noted in the septum, and in the mid and base inferior wall. 2. Rest of the myocardium in the distal anteroapical and inferoapical segment was nonviable. cc: MD Segun Dooley MD
--- NOTE | 2017-05-10 16:25 | DISCHARGE SUMMARY ---
ADMISSION DATE: 04/25/2017 DISCHARGE DATE: 05/03/2017 FINAL DISCHARGE DIAGNOSES: 1. Acute myocardial infarction. 2. Severe multivessel coronary artery disease with total occlusion of the LAD, severe stenosis of the major diagonal branch status post left heart catheterization. 3. Ischemic cardiomyopathy. 4. Acute kidney injury on chronic kidney disease. 5. Diabetes mellitus type 2. 6. Diabetic neuropathy. 7. Obesity. CONSULTATIONS REQUESTED DURING THIS HOSPITAL STAY: Cardiology consultation with Dr. Reyez. IMAGING PERFORMED DURING THIS HOSPITAL STAY: 1. Portable chest x-ray performed on 04/25/2017 that revealed no acute abnormality. 2. Two-dimensional echocardiogram performed on 04/26/2017 which revealed an ejection fraction of 35-40% with akinesis of the mid to distal anterior septal segments as well as distal lateral wall consistent with an infarction involving the LAD territory. 3. CT of the chest performed on 04/26/2017 that revealed patchy upper lobe infiltrates with mild emphysema. Mediastinal lymph nodes enlarged. 4. A myocardial perfusion scan performed on 04/27/2017 that revealed a severe defect involving the mid to apical anterior wall, mid to apical septum and mid to apical inferior wall and apex with corresponding akinesis. 5. Upper extremities CT performed on 05/03/2017 that revealed no acute abnormality. PROCEDURES PERFORMED DURING THIS HOSPITAL STAY: Cardiac catheterization performed on 05/03/2017 which revealed severe multi-vessel coronary artery disease that includes a total occlusion of LAD at a previously stented segment with severe stenosis of the major diagonal branch as well as significant stenosis of the proximal to mid circumflex with additional stenosis of the distal circumflex. HOSPITAL COURSE: Mr. Marcial is a 71-year-old male with a history of known coronary artery disease who presented to the ER with angina. On admission, the patient's initial cardiac enzymes were normal however with serial repeat, the patient ruled in for an acute NH with troponin of 3.6. Cardiology was consulted and the patient was started on full dose Lovenox as well as aspirin and a beta racquel and a statin therapy. The patient was scheduled for resting myocardial cardiac perfusion scan which revealed multiple defects consistent with an acute infarct. The patient also had a 2 dimensional echocardiogram which revealed the same as well as an ejection fraction of 35- 40%. The patient was managed medically for several days and ultimately had a left heart catheterization done on May 03, 2017 that revealed severe multivessel coronary artery disease. In light of the findings of the angiogram, the patient was transferred to [facility] on that same day for possible CABG. cc: Talia Virk MD
== END 2017-05-03 15:20 | disposition short-term general hospital (02) ==
LOC: SUPCPDRO → ED 18:01 → SUATTDRO 23:19 → 3S 23:19
PROVIDERS: ATTEND Internal Medicine